=== PATIENT | female | born 1985 | race Caucasian/White ===

== ENCOUNTER 2017-05-29 21:10 | Emergency (ER) | payer BC ==
[2017-05-29 21:22] VITALS: BP 119/77
--- NOTE | 2017-05-29 21:22 | UC ---
Dental HPI - HPI Summary HPI Summary: 32 year old female presents with right lower molar abscess. - History of Current Complaint Stated Complaint: DENTAL PAIN Time Seen by Provider: 05/29/17 21:15 Hx Last Menstrual Period: 03/07/16 - Allergies/Home Medications Allergies/Adverse Reactions: Allergies Allergy/AdvReac Type Severity Reaction Status Date / Time Amoxicillin Allergy Anaphylatic Verified 05/29/17 21:14 Shock Azithromycin Allergy vomit Verified 05/29/17 21:14 Fish Oil Allergy Anaphylatic Verified 05/29/17 21:14 Shock seafood Allergy Anaphylatic Uncoded 05/29/17 21:14 Shock Home Medications: Home Medications Clindamycin CAP* [Cleocin 150 MG CAP*] 150 mg PO Q6H 05/29/17 [History Confirmed 05/29/17] Ibuprofen TAB* [Motrin TAB* 800 MG] 800 mg PO Q8H PRN 05/29/17 [History Confirmed 05/29/17] PMH/Surg Hx/FS Hx/Imm Hx - Surgical History Surgical History: Yes Surgery Procedure, Year, and Place: wisdom teeth 2000 - Family History Known Family History: Positive: Diabetes - Social History Alcohol Use: None Substance Use Type: None Substance Use Comment - Amount & Last Used: 4 times daily Smoking Status (MU): Former Smoker Type: Cigarettes Amount Used/How Often: 1/3 PPD Length of Time of Smoking/Using Tobacco: 12 Years Have You Smoked in the Last Year: Yes When Did the Patient Quit Smoking/Using Tobacco: 01/06/16 - Immunization History Most Recent Influenza Vaccination: no Review of Systems Constitutional: Negative Skin: Negative Eyes: Negative ENT: Dental Pain Respiratory: Negative Cardiovascular: Negative Gastrointestinal: Negative Genitourinary: Negative Motor: Negative Neurovascular: Negative Musculoskeletal: Negative Neurological: Negative Psychological: Negative All Other Systems Reviewed And Are Negative: Yes Physical Exam Triage Information Reviewed: Yes Eye Exam: Normal ENT Exam: Normal Dental: Positive: Gross Decay/Caries @, Abscess @ Neck exam: Normal Neck: Positive: 1 Respiratory Exam: Normal Cardiovascular Exam: Normal Abdominal Exam: Normal Musculoskeletal Exam: Normal Neurological Exam: Normal Psychological Exam: Normal Skin Exam: Normal Dental Complaint Course/Dx - Differential Dx/Diagnosis Differential Diagnosis/Dx: Dental Abscess Provider Diagnoses: dental abscess Discharge - Discharge Plan Condition: Stable Disposition: HOME Prescriptions: Chlorhexidine MW 0.12% 473ML* [Peridex Mouth Wash 0.12%] 15 ml MT TID PC #1 btl Magic M W2 Diaz/Maal/Nyst/Lido* 15 ml SWISH SPIT QID #1 bottle Patient Education Materials: Dental Abscess (ED), Toothache (ED) Referrals: Patrick Olmedo DO [Primary Care Provider] - If Needed
== END 2017-05-29 21:35 | disposition home or self-care (01) ==
LOC: UCCORT 21:10
DX: K04.7 Periapical abscess without sinus (principal); Z87.891 Personal history of nicotine dependence
CPT/HCPCS: 99212; G0463

== ENCOUNTER 2018-05-16 06:20 | Day surgery (SDC) | payer OTHER ==
--- NOTE | 2018-05-04 07:28 | HP ---
PREOPERATIVE HISTORY AND PHYSICAL: DATE OF ADMISSION: 05/16/18 PROVIDER: Dr. Emmett Griffith.* (DICTATED BY LINDA CHEN) CHIEF COMPLAINT: Left knee pain. HISTORY OF PRESENT ILLNESS: Sondra is a 32-year-old female, who has been followed by Dr. Griffith for ongoing pain in her left knee. 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 She has had multiple patellar dislocations and falls to the ground. She has been able to relocate her patella herself with treatment and a knee immobilizer after that. She was initially planned for to have surgery but then decided against it. The patient feels as though she has failed conservative treatment with bracing and physical therapy and wishes to proceed with surgical intervention at this time. PAST MEDICAL HISTORY: Bipolar disorder. PAST SURGICAL HISTORY: ECT and dental extraction. She reports no complications with anesthesia. CURRENT MEDICATIONS: 1. Guayanilla 1200 mg daily. 2. Vistaril 50 mg 1 tab p.o. t.i.d. as needed for anxiety. 3. Tylenol as needed for pain. ALLERGIES: AMOXICILLIN, Z-JONNA, SHELLFISH, BETADINE, and FISH OIL. FAMILY HISTORY: Noncontributory. SOCIAL HISTORY: She is a [id number] mother. She lives with her . She smokes a quarter of a pack of cigarettes per day. She admits to occasional marijuana use and rare alcohol use. REVIEW OF SYSTEMS: Constitutional: Negative for recent hospitalizations, fevers, chills, night sweats, or unexplained weight loss. Head: Negative for headaches, lightheadedness, or balance problems. Cardiovascular: Negative for chest or arm pain with exertion, history of heart attack. Positive for heart murmur due to mitral valve prolapse, which is stable. Negative for heart palpitations, high blood pressure, embolism, or deep vein thrombosis. Respiratory: Negative for chronic cough, shortness of breath with exertion, asthma, or COPD. Gastrointestinal: Negative for heartburn, nausea, vomiting, diarrhea, constipation, or GERD. Genitourinary: Negative for nighttime urination, frequency of urination, urinary tract infections, or kidney problems. Musculoskeletal: Negative for chronic back or neck pain. Negative for recent fracture. Skin: Negative for rashes, lesions, lumps, or sores. Neurologic: Negative for seizure, stroke, or epilepsy. Positive for depression and anxiety due to her bipolar disorder. Hematology: Negative for easy bleeding, bruising, or anemia. Endocrine: Negative for diabetes or thyroid problems. PHYSICAL EXAMINATION GENERAL: She is a well-developed, well-nourished female, in no acute distress at rest. She is alert and oriented x3 with appropriate mood and affect. VITAL SIGNS: The patient is 5 feet 5 inches, 231 pounds, blood pressure 94/70, pulse 88, respirations 16. HEENT: Normocephalic, atraumatic. Her hearing and vision are grossly intact. NECK: Her trachea is midline. RESPIRATORY: Lungs are clear to auscultation bilaterally. No wheezes, rales, or rhonchi. CARDIOVASCULAR: Regular rate and rhythm. No murmurs, rubs, or gallops. Normal S1, S2. ABDOMEN: Soft, nondistended, nontender. Normal bowel sounds. EXTREMITIES: Exam of the left lower extremity, skin is intact without abrasions or open wounds. There is a mild joint effusion. There is no soft tissue swelling or bruising. She has a mild valgus deformity. She has passive range of motion from 3 degrees of hyperextension to 130 degrees of flexion. Positive medial and lateral joint line tenderness to palpation, medial greater than lateral. Mild lateral pain with Joann's testing. She is tender to palpation at the femoral origin of the MPFL. Mild patellofemoral compression pain. She is tender to palpation in the patellofemoral compartment. She is neurovascularly intact distally. GAIT: She ambulates with a mildly antalgic gait favoring the left leg. DIAGNOSTIC STUDIES: Imaging: MRI of the left knee was reviewed and showed partial thickness loss of articular cartilage in the patellofemoral compartment with small joint effusion. No bony contusions. No loose body. No clear recent tear of the MPFL. IMPRESSION: Left knee patellar instability. PLAN: The patient is to undergo left knee medial patellofemoral ligament reconstruction with hamstring allograft by Dr. Grfifith on 05/16/18. The risks, benefits, and postoperative course were discussed with the patient and she would like to proceed. All of her questions were answered to her full satisfaction. LINDA CHEN [id number]/[facility] #: [id number] [facility]OSPITALWilber
[~2018-05-16 06:20] MED LIST: Buffered Lidocaine 0.9% SYRIN* 5 ML/SYR SYRINGE INTRADERM ONE; Famotidine IV* 10 MG/ML 2 ML (20 mg) IV ONE
[2018-05-16] MEDS ORDERED: Clindamycin 900 MG IVPREMIX(* 900 MG/50 ML SDV IV ONE (06:29)
[2018-05-16] MEDS ORDERED: Buffered Lidocaine 0.9% SYRIN* 5 ML/SYR SYRINGE ONE (06:29)
[2018-05-16] MEDS ORDERED: Famotidine IV* 10 MG/ML 2 ML (20 mg) ONE (06:29)
[2018-05-16] MEDS ORDERED: fentaNYL* 50 MCG/ML 2 ML VIAL (100 MCG VIAL) ONE ×4 (07:31→10:38)
[2018-05-16] MEDS ORDERED: Midazolam* 1 MG/ML 5 ML VIAL (5 MG) ONE (07:31)
[2018-05-16] MEDS ORDERED: Bupivacaine 0.5% SDV PF* 30ML VIAL ONE (07:35)
[2018-05-16] MEDS ORDERED: Succinylcholine* 20 MG/ML 10 ML VIAL ONE (08:19)
[2018-05-16] MEDS ORDERED: Dexamethasone IV* 4 MG/ML 1 ML (4 MG) ONE (08:19)
[2018-05-16] MEDS ORDERED: DiMENhydriNATE IV* 50 MG/ML VIAL ONE ×2 (08:19→13:27)
[2018-05-16] MEDS ORDERED: Ketorolac INJ* 30 MG/ML 1 ML VIAL ONE (08:19)
[2018-05-16] MEDS ORDERED: Propofol* 10 MG/ML 20 ML BTL IV PUSH ONE (08:19)
[2018-05-16] MEDS ORDERED: Lidocaine 2% PF * 5 ML VIAL ONE (08:19)
[2018-05-16] MEDS ORDERED: Ondansetron INJ* 2 MG/ML VIAL IV PRN (08:37)
[2018-05-16] MEDS ORDERED: Naloxone* 0.4 MG/ML 1 ML VIAL IV PRN (08:37)
[2018-05-16] MEDS ORDERED: HYDROmorphone INJ* 0.5 MG/0.5 ML SYRINGE IV PRN (08:37)
[2018-05-16] MEDS ORDERED: Mineral Oil Sterile, TOPICAL* 25 ML BTL ONE (09:23)
[2018-05-16] MEDS ORDERED: HYDROmorphone INJ* 0.5 MG/0.5 ML SYRINGE ONE ×2 (11:03→12:17)
[2018-05-16] MEDS ORDERED: Ondansetron INJ* 2 MG/ML VIAL ONE (11:50)
--- NOTE | 2018-05-16 12:55 | RAD ---
INDICATION: Patellar tendon surgery COMPARISON: None FINDINGS: 30 seconds of fluoroscopy were provided for the orthopedics department. Fluoroscopic spot imaging of the left knee were obtained for operative control. CPT II Codes: G9500 (fluoro time doc)
[2018-05-16] MEDS ORDERED: Scopolamine 1.5 mg* PATCH ONE (13:27)
[2018-05-16] MEDS ORDERED: oxyCODONE/Acetamin 5/325 MG* TAB ONE ×2 (14:02→14:13)
[2018-05-16] MEDS: oxyCODONE/Acetamin 5/325 MG* TAB PO PRN ×2 (14:03→14:13)
[2018-05-16 14:36] VITALS: BP 123/87
--- NOTE | 2018-05-23 11:43 | OP ---
OPERATIVE REPORT: DATE OF OPERATION: 05/16/18 DATE OF : 81 SURGEON: Emmett Griffith MD MOTION PICTURE NARRATOR: LINDA Washington A physician campus administrative assistant was required for the length of the procedure for help with positioning, knee manipulation, instrumentation, and closure. ANESTHESIOLOGIST: Henna Kaur MD. ANESTHESIA: General anesthesia, local anesthesia with 30 cc of Marcaine 0.5% in subcutaneous tissues around the skin incisions. PRE-OP DIAGNOSES: 1. Recurrent patellar instability, lateral, left knee. 2. Left knee very low grade degenerative changes. POST-OP DIAGNOSES: 1. Recurrent patellar instability, lateral, left knee. 2. Low-grade degenerative changes, patellofemoral compartment. OPERATIVE PROCEDURE: 1. Left knee open medial patellofemoral ligament reconstruction with hamstring semitendinosus allograft. 2. Left knee arthroscopic chondroplasty patella. ANTIBIOTICS: Clindamycin 900 mg IV. IV FLUIDS: 1500 cc lactated Ringers IV. TOURNIQUET TIME: 121 minutes at 300 mmHg. The tourniquet was put down for a period of time while the graft was prepared, but the total tourniquet time was 121 minutes. SKIN TO SKIN TIME: This was not recorded but was somewhere between 2 and 3 hours. RADIATION EXPOSURE: Large C-arm was used with 30 seconds recorded. The exposure amount is not listed as radiographs are not accessible currently in our PACS system for some reason. SPECIMEN: None. IMPLANTS: Arthrex 4.75 mm SwiveLock screw placed in the patella. Arthrex biocomposite interference screw, 6 mm in the femur. Hamstring semitendinosus allograft used as well. ESTIMATED BLOOD LOSS: Approximately 15 cc. COMPLICATIONS: None. 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 The patient had a long history of patellar dislocations. One dislocation led to 3 months in an immobilizer treatment when the patient was in college. The patient had an MPFL reconstruction or a similar operative procedure planned at that point, but signed against it because she was nervous about surgery. The patient recently has had some subluxations of her knee cap while playing softball and wanted to have the procedure done this summer when she was able to recover. She described 10 complete patellar dislocation episodes over the last 11 years. I also thought she might have some pain about the patellofemoral compartment secondary to some degenerative changes seen on an x-ray and MRI. The patient responded insufficiently to nonoperative management and opted for surgery. Dr. Kumar of radiology and I each measured the TT-TG distance as a 10 to 11 mm , so I did not believe the tibial tubercle transfer was required. The patient did not have patella jose by criteria either. I discussed autograft and allograft usage and we opted for allograft. Discussed risks and potential complications of procedure. DESCRIPTION OF PROCEDURE: In preoperative holding, the patient signed a written consent. Operative extremity was marked in the preoperative holding. The patient was taken back to the operating room and placed supine on the operating room table. The patient was sedated and intubated. Prior to prepping and draping, I assessed the contralateral right knee for the amount of lateral translation of the patella, physiologic. This seemed similar in the operative left knee. The left lower extremity had a proximal thigh tourniquet placed. A lateral post was placed on the table. The left lower extremity was prepped and draped. Surgical time-out was performed. An Esmarch was applied and the tourniquet was elevated to 300 mmHg. An anterolateral knee arthroscopy portal was established using standard technique. Diagnostic arthroscopy was commenced. The patient had grade 1 to 2 changes of the articular cartilage throughout the under surface of the patella. Changes to the trochlear grove were lesser but present. I moved to the medial and lateral compartments. No articular cartilage injury or meniscus tears. I debrided some anterior synovitis including the ligamentum mucosum. I should say that I established 2 additional arthroscopic portals under direct visualization. One was an anteromedial portal. I used this to debride the anterior synovitis. Another was a proximal lateral portal. I used this to debride the articular cartilage, smoothen out of the undersurface of the patella. I also used the anteromedial portal for that. I also used the proximal lateral portal to assess the tracking of the patella. Unsurprising, given the TT-TG distance measured, the patella sat nicely in the trochlear groove throughout a range of motion, full. At this point, I realized that despite the patient's chronic dislocations, it would be of paramount importance not to overtighten the patient because when the patient was not unstable, she was tracking very nicely. I next proceeded to prepare my allograft. Tourniquet was dropped. Semitendinosus tendon was examined on back table. It looked of adequate quality. I used a FiberLoop suture on either end to place a running stitch of approximately 1.5 cm on each end of the graft. I precut the graft to be 13 cm long. I removed any excess tissue and the graft was nicely tubular. I placed the graft under tension on the back table and covered it with moist sponges. I next returned to the knee. Esmarch was re-applied and the tourniquet was elevated. I had placed the knee into a [facility] Knee Positioner at this point. I flexed the knee to approximately 30 degrees. I made an approximately 4 to 5 cm incision along the medial edge of the patella. I exchanged knives and dissected down to the medial aspect of the patella. I mostly maintained the integrity of the joint capsule. I placed a pin and then drilled over the pin, 25 mm in depth with a 4.75 mm drill bit. I next by palpation palpated the location of the medial epicondyle. I made approximately a 5-cm incision overlying the medial epicondyle, longitudinal. I exchanged knives and dissected down to the medial aspect of the distal femur. I was able to visualize the adductor tendon and I was able to palpate the adductor tubercle, gracilis tubercle and medial epicondyle. I brought the C-arm in and using C-arm, fine tuned the position of my planned tunnel at Schottle's point. Only once I had a perfect lateral x-ray view of the knee, did I place this pin. I placed the pin aiming from Schottle's point proximally and anteriorly as well as laterally. I next reamed a 6.5 mm tunnel 50 mm in length. I next created a tunnel between the 2 anatomic points, just superficial to the joint capsule. I loaded my graft on a 4.75 mm SwiveLock anchor and inserted that into the patella. This took some time as the SwiveLocks were not loading into the orifice correctly. I next placed the groove into the tunnel created and placed a biointerference screw into the femur. Again, there was an issue with the fixation in the patella, so I replaced the Arthrex SwiveLock into the patella and achieved better fixation. I then replaced the biointerference screw into the femur. It should be noted that the second point of fixation at the femur was placed with the knee in 30 to 40 degrees of flexion with the patella positioned in the lateral part of the trochlear groove to avoid overtightening. I cut excess suture. Confirmed that there was a nice full range of motion of the knee without any limitations. Irrigated both wounds. I placed the arthroscope into the proximal lateral portal and confirmed good tracking of the knee still in a variety of positions of knee flexion. I removed instruments from knee joint. Irrigation. Closure of the medial retinaculum to the patella with 2 horizontal mattress stitches with sutures that came from the SwiveLock anchor. Then closure of both longitudinal incisions with buried simple stitches in the subcutaneous tissue using Vicryl 2- 0 suture. Closure of the longitudinal incisions with running stitches using 4- 0 nylon in the skin. Closure of the arthroscopic skin incisions with figure-of- eight and 12 stitches using nylon 4-0 suture. Xeroform, 4x4s, ABDs, sterile Webril, Bhavin bandage from the foot to the proximal thigh. Knee brace placed and locked in extension. A cooling unit. DISPOSITION: The patient was to take aspirin b.i.d. x14 days postoperatively for DVT prophylaxis, Bactrim x7 days for infection prophylaxis and Percocet p.r.n. She was provided wound care instructions and should follow up with me in clinic 10 to 14 days postoperative. She will start physical therapy immediately, following Dr. Griffith's protocol. [id number]/[facility] #: [id number] [facility] HOSPITALWilber
== END 2018-05-16 15:00 | disposition home or self-care (01) ==
LOC: OR 06:20
PROVIDERS: ATTEND Orthopaedic Surgery
DX: M23.52 Chronic instability of knee, left knee (principal); Z72.0 Tobacco use; I34.1 Nonrheumatic mitral (valve) prolapse; F31.9 Bipolar disorder, unspecified; E66.9 Obesity, unspecified; M17.9 Osteoarthritis of knee, unspecified; Z87.442 Personal history of urinary calculi
CPT/HCPCS: 76001; A9270-GY; C1776; J0330; J1100; J1170; J1240; J1885; J2250; J2405; J2704; J3010; L8699

== ENCOUNTER 2018-09-11 08:49 | Emergency (ER) | payer OTHER ==
[2018-09-11 09:12] VITALS: BP 103/75
--- NOTE | 2018-09-11 09:35 | ED ---
Back Pain - HPI Summary HPI Summary: 33 yr old female with the complaint of low back pain, radiates into the right buttocks, and down back of right leg into the heel. Onset two weeks ago. No numbness or weakness. Two weeks ago onset of her symptoms. No trauma, falls or injuries. She has a two year old. The patient has a past history of herniated disks in lumbar spine. No issues for 15 years. - History of Current Complaint Chief Complaint: UCBackPain Stated Complaint: BACK PAIN Time Seen by Provider: 09/11/18 09:26 Hx Last Menstrual Period: 08/17 Pain Intensity: 7 - Allergies/Home Medications Allergies/Adverse Reactions: Allergies Allergy/AdvReac Type Severity Reaction Status Date / Time amoxicillin Allergy anaphylaxis Verified 05/16/18 06:43 azithromycin Allergy Vomiting Verified 05/16/18 06:43 fish oil Allergy anaphylaxis Verified 05/16/18 06:43 povidone-iodine Allergy Caution Verified 09/11/18 09:13 [From Betadine] due to seafood allergy-anaphylaxis soap [From Betadine] Allergy Caution Verified 09/11/18 09:13 due to seafood allergy-anaphylaxis seafood Allergy Anaphylatic Uncoded 05/16/18 06:43 Shock Home Medications: Home Medications lamoTRIgine TAB(*) [LaMICtal TAB(*)] 50 mg PO BID 09/11/18 [History Confirmed ] PMH/Surg Hx/FS Hx/Imm Hx Endocrine/Hematology History: Reports: Hx Diabetes - gestational Cardiovascular History: Reports: Hx Valvular Heart Disease - mvp Denies: Hx Hypertension, Hx Pacemaker/ICD, Other Cardiovascular Problems/ Disorders Respiratory History: Reports: Hx Asthma - mild exercise induced Denies: Other Respiratory Problems/Disorders GI History: Reports: Hx Ulcer Denies: Other GI Disorders History: Reports: Hx Kidney Stones - 2001 Denies: Other Problems/Disorders Musculoskeletal History: Reports: Hx Arthritis - left knee Sensory History: Reports: Hx Contacts or Glasses - readers Denies: Hx Hearing Aid Opthamlomology History: Reports: Hx Contacts or Glasses - readers Neurological History: Denies: Other Neuro Impairments/Disorders Psychiatric History: Reports: Hx Anxiety - on meds, Hx Depression - on meds, Hx Panic Disorder - Surgical History Surgery Procedure, Year, and Place: wisdom teeth 2000, left knee 05/16/18 MPFL reconstruction. ,TEETH EXTRACTION,2017. ELECTRO-CONVULSIVE PROCEDURE, 2012 Hx Anesthesia Reactions: No Infectious Disease History: No Infectious Disease History: Denies: Traveled Outside the [place] in Last 30 Days - Family History Known Family History: Positive: Diabetes - Social History Occupation: Works From/At Home Alcohol Use: Occasionally Alcohol Amount: 3 per month Substance Use Type: Reports: Marijuana Substance Use Comment - Amount & Last Used: 2 x per day; 09/11/18 0330 Smoking Status (MU): Light Every Day Tobacco Smoker Type: Cigarettes Amount Used/How Often: 1/3 PPD for 16 yrs Length of Time of Smoking/Using Tobacco: 12 Years Have You Smoked in the Last Year: Yes Review of Systems Constitutional: Negative Positive: Other - back pain All Other Systems Reviewed And Are Negative: Yes Physical Exam Triage Information Reviewed: Yes Vital Signs On Initial Exam: Initial Vitals Temp Pulse Resp BP Pulse Ox 97.4 F 98 18 103/75 98 09/11/18 09:02 09/11/18 09:02 09/11/18 09:02 09/11/18 09:02 09/11/18 09:02 Vital Signs Reviewed: Yes Appearance: Positive: Well-Appearing, No Pain Distress Skin: Positive: Warm Head/Face: Positive: Normal Head/Face Inspection ENT: Positive: Normal ENT inspection Respiratory/Lung Sounds: Positive: Clear to Auscultation, Breath Sounds Present Cardiovascular: Positive: RRR. Negative: Murmur Abdomen Description: Positive: Nontender Musculoskeletal: Positive: Strength/ROM Intact, Other - no CTLS spine tenderness. Neurological: Positive: Sensory/Motor Intact, Alert, Oriented to Person Place, Time, CN Intact II-III, Normal Gait, Speech Normal Psychiatric: Positive: Normal Diagnostics - Vital Signs Vital Signs Temp Pulse Resp BP Pulse Ox 09/11/18 09:02 97.4 F 98 18 103/75 98 - Laboratory Lab Statement: Any lab studies that have been ordered have been reviewed, and results considered in the medical decision making process. Back Pain Course/Dx - Course Course Of Treatment: 33 yr old with low back pain that radiates down the right leg. She will follow up with PMD for MRI arrangement. Flexeril and Motrin script given. - Diagnoses Provider Diagnoses: Back pain, Sciatica Discharge - Sign-Out/Discharge Documenting (check all that apply): Patient Departure All imaging exams completed and their final reports reviewed: No Studies - Discharge Plan Condition: Good Disposition: HOME Prescriptions: Cyclobenzaprine TAB* [Flexeril 10 MG TAB*] 10 mg PO BID PRN #20 tab PRN Reason: Pain Ibuprofen TAB* [Motrin TAB* 600 MG] 600 mg PO Q8H PRN #20 tab PRN Reason: Pain Scale 1-5 Patient Education Materials: Sciatica (ED) Referrals: Patrick Olmedo DO [Primary Care Provider] - 1 Day - Billing Disposition and Condition Condition: GOOD Disposition: Home
== END 2018-09-11 09:41 | disposition home or self-care (01) ==
LOC: UCCORT 08:49
DX: M54.40 Lumbago with sciatica, unspecified side (principal); J45.909 Unspecified asthma, uncomplicated; F17.210 Nicotine dependence, cigarettes, uncomplicated; Z88.0 Allergy status to penicillin; Z88.1 Allergy status to other antibiotic agents; Z91.013 Allergy to seafood; Z91.048 Other nonmedicinal substance allergy status; Z88.8 Allergy status to other drugs, medicaments and biological substances
CPT/HCPCS: 99212; G0463

== ENCOUNTER 2020-05-19 12:04 | Inpatient (IN) ==
[2020-05-19 13:27] LABS: Urine Appearance Cloudy; Urine Bilirubin Negative (Negative); Urine Blood Negative (Negative); Urine Color Yellow; Urine Glucose 3+(>=500 mg/dL) (Negative); Urine Ketones 1+ (Negative); Urine Nitrite Negative (Negative); Urine Protein Negative (Negative); Urine Specific Gravity 1.031 (1.010-1.030); Urine Urobilinogen Negative (Negative)
[2020-05-19 13:39] LABS: Urine Benzodiazepine Screen None Detected (None Detect); Urine Opiates Screen None Detected (None Detect)
[2020-05-19] MEDS ORDERED: Al Hydrox/Mg Hydrox/Simet LIQ 30 ML UDC PO PRN (14:05)
[2020-05-19 14:24] LABS: ABS Eosinophils 0.1 10^3/ul (0-0.6); ABS Lymphocytes 1.4 10^3/ul (1.0-4.8); ABS Monocytes 0.5 10^3/ul (0-0.8); Eosinophil % 0.6 %; Hematocrit 42 % (35-47); Hemoglobin 14.1 g/dL (12.0-16.0); Lymphocyte % 12.3 %; Mean Corpuscular HGB Conc 34 g/dL (31-36); Mean Corpuscular Hemoglobin 27 pg (27-31); Mean Corpuscular Volume 80 fL (80-97); Mean Platelet Volume 7.4 fL (7.4-10.4); Nucleated Red Blood Cells % 0.1; Platelet Count 244 10^3/uL (150-450); Red Blood Count 5.19 10^6 /uL (3.70-4.87); Red Cell Distribution Width 16 % (10-15); White Blood Count 11.3 10^3/uL (3.5-10.8)
[2020-05-19 14:39] LABS: ALT 13 U/L (7-52); AST 13 U/L (13-39); Albumin 4.7 g/dL (3.2-5.2); Albumin/Globulin Ratio 1.5 (1-3); Alkaline Phosphatase 120 U/L (34-104); Anion Gap 6 mmol/L (2-11); BUN/Creatinine Ratio 12.5 (8-20); Blood Urea Nitrogen 10 mg/dL (6-24); CO2 Carbon Dioxide 27 mmol/L (22-32); Calcium 9.3 mg/dL (8.6-10.3); Chloride 101 mmol/L (101-111); EGFR African American 97.7 (>60); EGFR Non-African American 80.7 (>60); Globulin 3.1 g/dL (2-4); Glucose 212 mg/dL (70-100); Potassium 4.6 mmol/L (3.5-5.0); Sodium 134 mmol/L (135-145); Total Protein 7.8 g/dL (6.4-8.9)
[2020-05-19 14:45] LABS: HCG Pregnancy < 0.60 mIU/mL
[2020-05-19 14:57] LABS: Acetaminophen < 15 mcg/mL; Alcohol, S < 10 mg/dL (<10); Salicylate < 2.50 mg/dL (<30)
[2020-05-19] MEDS ORDERED: Albuterol HFA INHALER 8 gm MDI INH PRN (18:30)
[2020-05-19] MEDS ORDERED: Nicotine GUM 2MG FRUIT FLAVOR PO PRN (19:00)
[2020-05-19] MEDS: lamoTRIgine 100 mg TAB (*) PO SCH (20:23)
[2020-05-20 07:28] LABS: HDL Cholesterol 45.8 mg/dL
[2020-05-20] MEDS: lamoTRIgine 100 mg TAB (*) PO SCH ×2 (08:56→21:02)
[2020-05-20] MEDS: Vitamin THERAPEUTIC TAB PO SCH (08:56)
[2020-05-20] MEDS: SitaGLIPtin 100 mg TAB (NF) PO SCH (08:58)
[2020-05-20] MEDS: Nicotine PATCH 14 MG/24 HR PATCH TRANSDERM SCH (13:50)
[2020-05-21] MEDS: Nicotine PATCH 14 MG/24 HR PATCH TRANSDERM SCH (08:38)
[2020-05-21] MEDS: lamoTRIgine 100 mg TAB (*) PO SCH ×2 (08:38→20:44)
[2020-05-21] MEDS: Vitamin THERAPEUTIC TAB PO SCH (08:39)
[2020-05-21] MEDS: SitaGLIPtin 100 mg TAB (NF) PO SCH (08:40)
[2020-05-22] MEDS: CMCS: SitaGLIPtin 100 mg TAB (NF) PO SCH (08:40)
[2020-05-22] MEDS: lamoTRIgine 100 mg TAB (*) PO SCH ×2 (08:41→20:32)
[2020-05-22] MEDS: Vitamin THERAPEUTIC TAB PO SCH (08:41)
[2020-05-22] MEDS: Nicotine PATCH 14 MG/24 HR PATCH TRANSDERM SCH (09:01)
[2020-05-23] MEDS: lamoTRIgine 100 mg TAB (*) PO SCH (08:23)
[2020-05-23] MEDS: Vitamin THERAPEUTIC TAB PO SCH (08:23)
[2020-05-23] MEDS: CMCS: SitaGLIPtin 100 mg TAB (NF) PO SCH (08:24)
[2020-05-23] MEDS: Nicotine PATCH 14 MG/24 HR PATCH TRANSDERM SCH (08:24)
[2020-05-23 09:23] VITALS: BP 129/77
== END 2020-05-23 13:45 | disposition home or self-care (01) | DRG 755 ==
LOC: ED 12:04 → BSU 14:05
PROVIDERS: ADMIT Psychiatry & Neurology Psychiatry; ATTEND Psychiatry & Neurology Psychiatry

== ENCOUNTER 2021-02-12 10:48 | Inpatient (IN) ==
[2021-02-12 13:06] LABS: ABS Monocytes 0.4 10^3/ul (0-0.8); Hematocrit 40 % (35-47); Hemoglobin 13.1 g/dL (12.0-16.0); Lymphocyte % 10.2 %; Mean Corpuscular HGB Conc 33 g/dL (31-36); Mean Corpuscular Hemoglobin 26 pg (27-31); Mean Corpuscular Volume 79 fL (80-97); Mean Platelet Volume 7.2 fL (7.4-10.4); Platelet Count 263 10^3/uL (150-450); Red Blood Count 5.05 10^6 /uL (3.70-4.87); Red Cell Distribution Width 15 % (10-15); White Blood Count 9.4 10^3/uL (3.5-10.8)
[2021-02-12 13:41] LABS: HCG Pregnancy < 0.60 mIU/mL
[2021-02-12 13:48] LABS: Alcohol, S < 10 mg/dL (<10); Salicylate < 2.50 mg/dL (<30)
[2021-02-12 13:50] LABS: Acetaminophen < 15 mcg/mL
[2021-02-12 13:57] LABS: Albumin 4.7 g/dL (3.2-5.2); Anion Gap 13 mmol/L (2-11); CO2 Carbon Dioxide 21 mmol/L (22-32); Calcium 9.1 mg/dL (8.6-10.3); Chloride 102 mmol/L (101-111); Potassium 3.6 mmol/L (3.5-5.0); Sodium 136 mmol/L (135-145)
[2021-02-12 14:03] LABS: BUN/Creatinine Ratio 13.4 (8-20); Blood Urea Nitrogen 11 mg/dL (6-24); EGFR African American 94.9 (>60); EGFR Non-African American 78.4 (>60); Glucose 154 mg/dL (70-100); Total Protein 7.8 g/dL (6.4-8.9)
[2021-02-12 14:04] LABS: ALT 16 U/L (7-52); AST 20 U/L (13-39); Albumin/Globulin Ratio 1.5 (1-3); Alkaline Phosphatase 109 U/L (34-104); Globulin 3.1 g/dL (2-4)
[2021-02-12] MEDS ORDERED: Al Hydrox/Mg Hydrox/Simet LIQ 30 ML UDC PO PRN (15:16)
[2021-02-12] MEDS ORDERED: Albuterol HFA INHALER 8 gm MDI INH PRN (19:04)
[2021-02-13] MEDS ORDERED: Empaglifozin 10 mg TAB (NF) PO SCH (09:00)
[2021-02-13] MEDS: CMCS:SitaGLIPtin 100 mg TAB (NF) PO SCH (09:59)
[2021-02-13] MEDS: EMPAGLIFOZIN 10 MG PO SCH (18:56)
[2021-02-14 08:22] LABS: HDL Cholesterol 33.9 mg/dL
[2021-02-14] MEDS: CMCS:SitaGLIPtin 100 mg TAB (NF) PO SCH (08:38)
[2021-02-14] MEDS: EMPAGLIFOZIN 10 MG PO SCH (08:38)
[2021-02-15] MEDS: EMPAGLIFOZIN 10 MG PO SCH (08:35)
[2021-02-15] MEDS: CMCS:SitaGLIPtin 100 mg TAB (NF) PO SCH (08:36)
[2021-02-16] MEDS: EMPAGLIFOZIN 10 MG PO SCH (08:30)
[2021-02-16] MEDS: CMCS:SitaGLIPtin 100 mg TAB (NF) PO SCH (08:31)
[2021-02-17] MEDS: EMPAGLIFOZIN 10 MG PO SCH (09:01)
[2021-02-17] MEDS: CMCS:SitaGLIPtin 100 mg TAB (NF) PO SCH (10:06)
[2021-02-18] MEDS: EMPAGLIFOZIN 10 MG PO SCH (09:05)
[2021-02-18] MEDS: CMCS:SitaGLIPtin 100 mg TAB (NF) PO SCH (09:06)
[2021-02-19] MEDS: EMPAGLIFOZIN 10 MG PO SCH (08:44)
[2021-02-19] MEDS: CMCS:SitaGLIPtin 100 mg TAB (NF) PO SCH (08:45)
[2021-02-19 08:53] VITALS: BP 114/71
== END 2021-02-19 14:00 | disposition home or self-care (01) | DRG 882 ==
LOC: ED 10:48 → BSU 15:16
PROVIDERS: ADMIT Psychiatry & Neurology Psychiatry; ATTEND Psychiatry & Neurology Psychiatry

== ENCOUNTER 2021-05-04 10:57 | Observation (INO) ==
[2021-05-04] MEDS ORDERED: NS 0.9% 1000 ml BAG 1,000 ML IV ONE (11:11)
[2021-05-04 11:25] LABS: ABS Lymphocytes 1.1 10^3/ul (1.0-4.8); ABS Monocytes 0.5 10^3/ul (0-0.8); ABS Neutrophils 4.6 10^3/ul (1.5-7.7); Eosinophil % 0.2 %; Hematocrit 37 % (35-47); Hemoglobin 12.2 g/dL (12.0-16.0); Lymphocyte % 17.5 %; Mean Corpuscular HGB Conc 33 g/dL (31-36); Mean Corpuscular Hemoglobin 26 pg (27-31); Mean Corpuscular Volume 80 fL (80-97); Mean Platelet Volume 7.3 fL (7.4-10.4); Platelet Count 210 10^3/uL (150-450); Red Blood Count 4.67 10^6 /uL (3.70-4.87); Red Cell Distribution Width 17 % (10-15); White Blood Count 6.2 10^3/uL (3.5-10.8)
[2021-05-04] MEDS ORDERED: Iodixanol (CONTRAST) 320 MG/ML 100 ML SDV IV ONE (11:34)
[2021-05-04 11:50] LABS: Albumin 4.5 g/dL (3.2-5.2); Albumin/Globulin Ratio 1.6 (1-3); Calcium 8.8 mg/dL (8.6-10.3); EGFR African American 93.1 (>60); EGFR Non-African American 76.9 (>60); Globulin 2.8 g/dL (2-4); HDL Cholesterol 52.3 mg/dL; Potassium 3.8 mmol/L (3.5-5.0); Total Bilirubin 0.4 mg/dL (0.2-1.0); Total Protein 7.3 g/dL (6.4-8.9)
[2021-05-04 12:07] LABS: Activated Partial Thrombo Time 29.2 seconds (26.0-38.0); INR 0.98 (0.82-1.09)
[2021-05-04] MEDS ORDERED: Dextrose 50% Syringe 50 ml 25 GM/50 ML SYRINGE IV PUSH PRN (12:48)
[2021-05-04 13:54] LABS: C Reactive Protein 5.25 mg/L (<8.01)
[2021-05-04 14:04] LABS: TSH Ultra Thyroid Stim Horm 0.78 mcIU/mL (0.34-5.60)
[2021-05-04 14:09] LABS: Free T4 1.1 ng/dL (0.61-1.12)
[2021-05-04 14:18] LABS: Folate 6.7 ng/mL (5.90-24.80)
[2021-05-04] MEDS ORDERED: Albuterol HFA INHALER 8 gm MDI INH PRN (16:32)
[2021-05-04] MEDS ORDERED: Gadoteridol (CONTRAST) 279.3 MG/ML 10 ML IV ONE (21:22)
[2021-05-05 06:19] LABS: ABS Lymphocytes 1.4 10^3/ul (1.0-4.8); ABS Monocytes 0.4 10^3/ul (0-0.8); ABS Neutrophils 3.1 10^3/ul (1.5-7.7); Eosinophil % 0.3 %; Hematocrit 32 % (35-47); Hemoglobin 10.5 g/dL (12.0-16.0); Lymphocyte % 28.6 %; Mean Corpuscular HGB Conc 33 g/dL (31-36); Mean Corpuscular Hemoglobin 27 pg (27-31); Mean Corpuscular Volume 80 fL (80-97); Mean Platelet Volume 7.3 fL (7.4-10.4); Nucleated Red Blood Cells % 0.1; Platelet Count 173 10^3/uL (150-450); Red Blood Count 3.96 10^6 /uL (3.70-4.87); Red Cell Distribution Width 17 % (10-15)
[2021-05-05 06:43] LABS: Calcium 8.2 mg/dL (8.6-10.3); EGFR African American 91.8 (>60); EGFR Non-African American 75.9 (>60); Potassium 3.8 mmol/L (3.5-5.0)
[2021-05-05] MEDS ORDERED: Gadoteridol (CONTRAST) 279.3 MG/ML 10 ML IV ONE (17:13)
[2021-05-06 05:58] LABS: Urine Appearance Turbid; Urine Bilirubin Negative (Negative); Urine Blood Negative (Negative); Urine Color Yellow; Urine Glucose 3+(>=500 mg/dL) (Negative); Urine Ketones Negative (Negative); Urine Nitrite Negative (Negative); Urine Protein 1+(30 mg/dL) (Negative); Urine Specific Gravity 1.025 (1.002-1.030); Urine Urobilinogen Negative (Negative)
[2021-05-06 06:02] LABS: Urine Bacteria 1+ (Absent); Urine Red Blood Cell Absent (Absent); Urine Squamous Epithelial Cell Present (Absent); Urine White Blood Cell 1+(6-10/hpf) (Absent)
[2021-05-06 09:58] VITALS: BP 116/69
== END 2021-05-06 10:15 | disposition home or self-care (01) ==
LOC: MEDTELE 10:57 → ED 10:57 → MEDTELE 14:33
PROVIDERS: ADMIT Hospitalist; ATTEND Hospitalist